=== PATIENT | male | born 1965 | race Caucasian/White ===

== ENCOUNTER → 2016-07-30 | Outpatient (CLI) | payer OTHER ==
[~2016-07-30] VITALS: Ht 170.2 cm; Wt 84.4 kg
[~2016-07-30] MED LIST: AMITRIPTYLINE H25 M2 PO; ASPIR 8181 MG PO; ASPIRIN325 PO; ATORVASTATIN CA40 MG PO; BACLOFEN20 MG PO; CARISOPRODOL 3350 MG PO; COZAAR 50 MG TA50 M2 PO; DULERA 100 MCG/13 GM INH; EFFIENT10 MG PO; FERREX 150150 MG PO; FISH OIL 1,0001 EAC7 PO; FISH OIL 1,001000 M2 PO; GLUCOPHAGE1000 MG PO; HYDROCODONE-AP1 EAC1 PO; IMDUR 60 MG TAB60 M1 PO; INVOKANA100 MG PO; LANTUS100 UNIT/M PO; LISINOPRIL2.5 MG PO; LORTAB PO; LYRICA300 MG PO; METFORMIN PO; METOPROLOL SUCC25 M1 PO; MOBIC15 MG PO; NORCO 10-325 T1 EACH PO; PRILOSEC20 MG PO; PRILOSEC40 MG PO; PROAIR HFA8.5 GM INH; REGLAN10 MG PO; TOPROL XL25 MG PO; TOPROL XL50 MG PO; TRILEPTAL150 MG PO; WELLBUTRIN SR150 MG PO
--- NOTE | ~2016-07-30 | CATHLAB ---
[facility] [place] [address] INVASIVE PROCEDURE REPORT Name: IGNACIA DOW [id number] Admission: 07/30/16 Attend Phys: Ananda Serrano, Discharge: Date of : 61 Date of Service: 07/30/16 0847 Report #: [id number] THIS REPORT FOR: //name// CC: Ananda Mishra DO PROCEDURE: Left heart coronary angiography, WENDY vein graft imaging. INDICATIONS: Chest pain and coronary artery disease. DESCRIPTION OF PROCEDURE: The potential benefits and risks of the procedure were discussed at length with the patient who understood. Full written and informed consent was obtained. The patient was brought into the catheterization suite where his right groin was prepped and draped in a sterile fashion. He was sedated with intravenous Versed. 1% Xylocaine was used as local anesthetic. A 6-St Lucian sheath was placed in the right femoral artery by the modified Seldinger technique. Left heart catheterization was performed with a 6-St Lucian angled pigtail catheter. A single plain ventriculogram was performed in the BLUE view. Pullback gradients were measured across the aortic valve. Selective coronary angiography was performed with a 6-St Lucian JL 4.5 cm coronary and a 6-St Lucian JR 4 cm coronary catheter. The WENDY was selectively engaged with a 6-St Lucian WENDY catheter, the N[place]ka right was used to engage the single vein graft which was actually known to be occluded. All catheters and tubes removed. Hand injection was performed to the right groin sheath with placement of Mynx device upon removal of the sheath. The patient remained in excellent condition at the conclusion of the procedure with good right groin hemostasis and intact distal pulses. RESULTS: LEFT HEART HEMODYNAMICS: 1. Left ventricular systolic pressure of 150. 2. Left ventricular end diastolic pressure of 20. 3. Aortic valve, no gradient was present on pullback across the aortic valve, central aortic pressure 140/60. ANGIOGRAPHY: LEFT VENTRICULOGRAM: Ventriculography demonstrated normal global and regional left ventricular systolic function. Ejection fraction was estimated at 65%. Mitral regurgitation was absent. SELECTIVE CORONARY ANGIOGRAPHY: Left main had been previously stented. The stent was widely patent without evidence of restenosis. Left anterior descending: The left anterior descending exhibited mild proximal plaquing. The mid LAD after a fairly large anterolateral branch was occluded. [facility] [address] [place] [address] INVASIVE PROCEDURE REPORT Name: IGNACIA DOWNE Room #: REG CL Karlos#: [id number] Admission: 07/30/16 Attend Phys: Ananda Serrano, Discharge: Date of : 61 Date of Service: 07/30/16 0847 Report #: [id number] Circumflex: Circumflex was large and comprised of a single mid vessel arising marginal branch. Circumflex exhibited mild plaquing proximally. Right coronary: The right coronary was dominant with a 50% midvessel stenosis. Posterior descending exhibited mild plaquing. Vein graft to the right coronary, the vein graft to the right coronary was known to be flush occluded at the aorta. The mammary: The mammary was normal throughout its course and anastomosed to the mid portion of the LAD. The distal anastomotic site was widely patent with excellent runoff into the LAD. SUMMARY: 1. Normal global and regional left ventricular systolic function, mitral regurgitation was absent, the ejection fraction of 65%. 2. Widely patent left main stent. 3. Severe LAD disease with widely patent left internal mammary to the LAD. 4. Mild circumflex plaquing. 5. The right coronary exhibited the moderate 50% midvessel stenosis. This was a right coronary dominant circulation. Based on this angiographic study, continued pharmacologic therapy and risk factor modification is recommended. <ELECTRONICALLY SIGNED> By: Ananda Serrano MD, [facility] 08/06/16 0946 0847 0957 Ananda Serrano MD, FACC /nt
[2016-07-30 06:42] VITALS: BP 141/76
== END | disposition home or self-care (01) ==
LOC: CATH 06:30
DX: I25.10 Atherosclerotic heart disease of native coronary artery without angina pectoris (principal); I10 Essential (primary) hypertension; E11.9 Type 2 diabetes mellitus without complications; E78.00 Pure hypercholesterolemia, unspecified; J44.9 Chronic obstructive pulmonary disease, unspecified; K21.9 Gastro-esophageal reflux disease without esophagitis; Z95.5 Presence of coronary angioplasty implant and graft; J45.909 Unspecified asthma, uncomplicated; F17.210 Nicotine dependence, cigarettes, uncomplicated

== ENCOUNTER → 2021-01-30 | Outpatient (CLI) | payer OTHER | LOC: SJCVC 13:34 | PROVIDERS: ATTEND Internal Medicine | DX: I25.10 Atherosclerotic heart disease of native coronary artery without angina pectoris (principal); I10 Essential (primary) hypertension; E78.5 Hyperlipidemia, unspecified; E11.9 Type 2 diabetes mellitus without complications; F17.210 Nicotine dependence, cigarettes, uncomplicated; Z79.4 Long term (current) use of insulin; Z95.1 Presence of aortocoronary bypass graft; Z79.82 Long term (current) use of aspirin; Z79.891 Long term (current) use of opiate analgesic; Z88.1 Allergy status to other antibiotic agents ==

== ENCOUNTER 2021-02-28 06:20 | Observation (INO) | payer OTHER ==
[~2021-02-28] VITALS: Ht 170.2 cm; Wt 75.7 kg
[~2021-02-28 06:20] MED LIST changes: -GLUCOPHAGE1000 MG PO; +METFORMIN HCL1000 MG PO
[2021-02-28 07:19] VITALS: BP 147/69
[2021-02-28 07:25] LABS: HEMATOCRIT 40.1 % (42.0-52.0); HEMOGLOBIN 13.3 gm/dL (14.0-18.0); MCH 29.7 pg (26.0-34.0); MCHC 33.1 g/dL (28.0-37.0); MCV 89.9 fL (80.0-100.0); RBC 4.46 mil/uL (4.50-6.00); RDW 17.2 % (10.5-14.5); WBC 11.3 thou/uL (4.0-11.0)
[2021-02-28 07:37] LABS: CALCIUM 8.7 mg/dL (8.5-10.1); CREATININE 1.2 mg/dL (0.7-1.3)
[2021-02-28] MEDS ORDERED: AMITRIPTYLINE H50 M2 PO (07:41)
[2021-02-28] MEDS ORDERED: BUDESONIDE-FO10.2 G1 INH (07:41)
[2021-02-28] MEDS ORDERED: JARDIANCE25 MG PO (07:42)
[2021-02-28] MEDS ORDERED: CARISOPRODOL350 MG PO (07:42)
[2021-02-28] MEDS ORDERED: HYDROCORTISONE30 G4 TOP (07:43)
[2021-02-28] MEDS ORDERED: FAMOTIDINE 40 M40 M1 PO (07:43)
[2021-02-28] MEDS ORDERED: REGLAN 10 MG TA10 MG PO (07:44)
[2021-02-28] MEDS ORDERED: LEVO-T25 MCG PO (07:44)
[2021-02-28] MEDS ORDERED: NITROSTAT0.4 M1 SUBLING (07:45)
[2021-02-28] MEDS ORDERED: EZALLOR SPRINKL20 MG PO (07:46)
[2021-02-28] MEDS ORDERED: ROXICODONE5 MG PO (07:46)
[2021-02-28] MEDS ORDERED: XARELTO2.5 MG PO (07:46)
[2021-02-28] MEDS ORDERED: CARISOPRODOL 3350 M1 PO (11:39)
[2021-02-28] MEDS ORDERED: CLOPIDOGREL75 MG PO (16:23)
--- NOTE | 2021-02-28 18:17 | NUR ---
PT ADMIT TO CCU APPROX 1730 FROM [facility]. PT WAS OFF OF BEDREST WHEN HE GOT TO CCU. UP AD HERNESTO. PT GROIN SITE C/D/I, NO HEMATOMA, NO PAIN/TENDERNESS. PT AFEBRILE, ADEQUATE UOP, NO BM, APPROPRIATE APPETITE. NORMAL SINUS ON TELE. ALL OF PT'S ADMISSION WAS COMPLETED, IN ORDER TO SEE INFORMATION YOU HAVE TO LOOK UNDER PCI. THERE SEEMS TO BE A MISCOMMUNICATION BETWEEN ADMITTING AND OUR OUTSEWER. PT HAS BEEN UPDATED AND EDUCATED ON PT CONDITION AND POC. PT PROGRESSING TOWARDS POC. PLAN TO DC HOME TOMORROW.
[2021-02-28 20:45] VITALS: BP 142/64; BP 153/74
[2021-03-01 04:45] VITALS: BP 187/97
--- NOTE | 2021-03-01 06:32 | NUR ---
PT IN OB STATUS. PT ALSO HAS ADMISSION ON 170. ONLY COMPLAINT WAS SOME BACK PAIN, CALLED AND RECEIVED ORDERS TO RESTART HOME MEDICATION AND ELAVIL. PT RESTED COMFORTABLY ALL NIGHT. CATH SITE C/D/I AND WITHOUT BRUISING. UP AD HERNESTO TO BATHROOM. PT COULD DC TODAY.
[2021-03-01 07:55] VITALS: BP 163/85
[2021-03-01 09:43] LABS: HEMATOCRIT 40.8 % (42.0-52.0); MCH 28.8 pg (26.0-34.0); MCHC 31.9 g/dL (28.0-37.0); MCV 90.4 fL (80.0-100.0); RBC 4.52 mil/uL (4.50-6.00); RDW 16.9 % (10.5-14.5); WBC 10.3 thou/uL (4.0-11.0)
[2021-03-01 10:08] LABS: CALCIUM 8.9 mg/dL (8.5-10.1); POTASSIUM 4.6 mmol/L (3.5-5.1)
[2021-03-01 11:20] VITALS: BP 163/85
--- NOTE | 2021-03-01 11:40 | NUR ---
PT IS AXOX4, PLEASANT; VSS, AFEBRILE, SR ON THE MONITOR. PT POST CATH DAY 1, R GROIN C/D/I, NO HEMATOMA. CARDIOLOGY CONSULTED. PT TO D/C HOME TODAY. CARDIAC REHAB CONDUCTED EDUCATION; POST D/C EDUCATION CONDUCTED BY NURSE. PT COMMUNICATED UNDERSTANDING. PT D/C WITH TO HOME. NO CONCERNS AT THIS TIME.
--- NOTE | 2021-03-01 12:25 | CATHLAB ---
[facility] [place] [address] INVASIVE PROCEDURE REPORT Name: IGNACIA DOW Room #: 213-P [place] [place]#: [id number] Admission: 02/28/21 Attend Phys: Ananda Serrano MD, Discharge: 03/01/21 Date of : 61 Report #: [id number] THIS REPORT FOR: cc: Mg Snyder James R. DO Lundgren, Craig H. MD [facility] ~ APPROVED REPORT Study performed: 02/28/2021 07:28:48 Patient Details Patient Status: Out-Patient Room #: The patient is a 55 year-old male Event Personnel Ananda Serrano Corporate [employer] Research Analyst, Arely Quezada RTR Monitor, Whitney Van RN RN, Nelli Forman RTR Scrub Procedures Performed Art Access - R femoral artery* Left Heart Cath Coronaries, Bypass Grafts [id number] LHCCORCABG Hemostasis w/ Mynx NABOR Place w/wo Plasty Single RCA [id number] 13641 Initial Mod Sed Same Phys/QHP Gr5y 060738 92406 Mod Sed Same Phys/QHP Ea 153408 Procedure Narrative The patient was brought electively to the Cardiac Catheterization Laboratory and was prepped and draped in a sterile manner. The Right Groin^ was infiltrated with 1% Lidocaine subcutaneous anesthesia. A PINNACLE 6FR Sheath #[id number] sheath was inserted into the RFA^. Coronary angiography was performed using coronary diagnostic catheters. The right coronary system was accessed and visualized with a JR4 catheter. The left coronary system was accessed and visualized with a JL4 catheter. The left ventricle was accessed and visualized with a ANGLED PIGTAIL catheter. Left ventriculogram was performed in 30 degree projection. An aortogram of the abdominal aorta was performed. Closure device was deployed with a Fr MYNXGRIP 6/7F #[id number]. The patient tolerated the procedure well and there were no complications associated with the procedure. There was no hematoma. Intraoperative Conscious Sedation Sedation start time: 7:57 Case end Time: 8:57 Fentanyl 100 mcg Versed [address] [address] INVASIVE PROCEDURE REPORT Name: IGNACIA DOW Room #: 213[facility] [id number] Admission: 02/28/21 Attend Phys: Ananda Serrano, Discharge: 03/01/21 Date of : 61 Report #: [id number] Fluoro Time: 9.50 minutes Dose: DAP 64073.60 cGycm2 2678 mGy Contrast Type and Amount: Omnipaque 260 ml Coronary Angiography The patient's coronary anatomy is right dominant. Diagnostic Cath Left Main Mild left main plaquing. Widely patent proximal stent LAD 75 to 80% proximal LAD stenosis just after a large septal perforating branch. Widely patent left internal mammary to the LAD. Excellent runoff into the mid to distal LAD. Diagonal 1 Mild first diagonal branch plaquing Circumflex The circumflex was comprised of a single trifurcating marginal branch. Mild scattered plaquing. Chronically occluded vein graft to the marginal branch Right Coronary Dominant right coronary with scattered 40-50% mid vessel plaquing followed by an 85% distal right coronary stenosis R PDA Minimal plaquing in a large posterior descending branch RPLV Normal posterior lateral branch Left Ventriculography The left ventricle is normal in size with normal contractility. The left ventricular ejection fraction is estimated to be 60-65%. Left ventricular wall motion abnormalities are not present. There is mild mitral insufficiency. Hemodynamics The aortic pressure is 177/61 mmHg with a mean of 114 mmHg. The left ventricular pressure is 169/8 mmHg with a mean of mmHg. The left ventricular end diastolic pressure is 27 mmHg. PCI Technique Lesion Anticoagulation was achieved with Heparin, Integrilin. Patient was preloaded with Plavix. Percutaneous coronary intervention was performed on the distal right coronary artery. The lesion stenosis prior to intervention was 85% with EDEN 3 flow. A LAUNCHER 6FR JR 4 #[id number] Guide Catheter was used to engage the ostium. A Luge Wire .014 x 182CM #[id number] Interventional Guidewire was used to cross the lesion. BALLOON DILATION [facility] [address] [place] [address] INVASIVE PROCEDURE REPORT Name: IGNACIA DOW Room #: 213-P [facility] IN M.R.#: [id number] Admission: 02/28/21 Attend Phys: Ananda Serrano, Discharge: 03/01/21 Date of : 61 Report #: [id number] A Balloon catheter Euphora RX 2.5 x 12 #[id number] was inserted and inflated up to 10.00atm for 33seconds. STENT DEPLOYMENT A drug-eluting stent RESOLUTE YAS RX 3.0 X 15 #[id number] was inserted and inflated up to 18.00atm for 25seconds. POST STENT DEPLOYMENT BALLOON DILATION A Balloon catheter TREK NC RX 3.0 X 12 #[id number] was inserted and inflated up to 22.00atm for 25seconds. Additional Inflation: 22.00atm for 19seconds. Final angiography reveals 0 % stenosis with EDEN 3 flow. Conclusion 1. Normal global and regional left ventricular systolic function. EF 65%. 2. Mild left main plaquing. Widely patent previously placed left main stent. 3. Severe proximal LAD disease with widely patent left internal mammary to the LAD 4. Mild circumflex plaquing. Chronically occluded vein graft to the OM1 4. Severe distal right coronary stenosis stented with a 3.0 x 15 mm Resolute medicated stent postdilated to 3.25 mm Recommendations Smoking Cessation Cardiac Rehabilitation Referral Aggressive Medical Therapy <ELECTRONICALLY SIGNED> By: Ananda Serrano MD, [facility] 03/01/21 1225 24 24 Ananda Serrano MD, FACC /INF
--- NOTE | 2021-03-01 12:36 | EKG ---
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: SBSMITH : 1965 Requested By: Ananda Serrano Order Number: [id number] MD: Juan C Aggarwal Measurements Intervals [place] Rate: 93 P: 58 [place]: 154 QRS: 32 QRSD: 109 T: 32 QT: 378 QTc: 471 Interpretive Statements Sinus rhythm Probable left atrial enlargement Compared to ECG 12/21/2014 08:12:24 No significant changes Electronically Signed On 03-01-2021 12:35:37 CDT by Juan C Aggarwal [email or web address] <ELECTRONICALLY SIGNED> By: Juan C Aggarwal MD, [facility] 03/01/21 1235 0754 0754 Juan C Aggarwal MD, FACC /EPI
== END 2021-03-01 11:41 | disposition home or self-care (01) ==
LOC: CATH 06:20 → 2N 17:48
PROVIDERS: ADMIT Internal Medicine; ATTEND Internal Medicine
DX: I25.10 Atherosclerotic heart disease of native coronary artery without angina pectoris (principal); E78.00 Pure hypercholesterolemia, unspecified; Z79.82 Long term (current) use of aspirin; Z79.899 Other long term (current) drug therapy

== ENCOUNTER 2021-02-28 09:34 | Inpatient (IN) | payer OTHER ==
[~2021-02-28] VITALS: Ht 170.2 cm; Wt 76.2 kg
[~2021-02-28 09:34] MED LIST changes: +AMITRIPTYLINE H50 M2 PO; +BUDESONIDE-FO10.2 G1 INH; +CARISOPRODOL350 MG PO; +EZALLOR SPRINKL20 MG PO; +FAMOTIDINE 40 M40 M1 PO; +HYDROCORTISONE30 G4 TOP; +JARDIANCE25 MG PO; +LEVO-T25 MCG PO; +NITROSTAT0.4 M1 SUBLING; +REGLAN 10 MG TA10 MG PO; +ROXICODONE5 MG PO; +XARELTO2.5 MG PO
[2021-02-28] MEDS ORDERED: CARISOPRODOL 3350 M1 PO (11:39)
[2021-02-28] MEDS ORDERED: CLOPIDOGREL75 MG PO (16:23)
--- NOTE | 2021-03-16 11:47 | D ---
[facility] [place] [address] DISCHARGE SUMMARY Name: IGNACIA DOW Room #: 170-18 [facility] IN M.R.#: [id number] Admission: 02/28/21 Attend Phys: Ananda Serrano MD, Discharge: 03/01/21 Date of : 61 Report #: [id number] THIS REPORT FOR: cc: Mg Snyder James R. DO Lundgren, Craig H. MD [facility] ~ DATE OF SERVICE: 03/01/2021 DISCHARGE DIAGNOSES: 1. Unstable angina. 2. Severe coronary artery disease with prior left internal mammary to the left anterior descending, failed vein graft to the marginal and right coronary artery. 3. Severe distal right coronary disease, successfully stented with a 3.0 x 15 mm Resolute medicated stent. 4. Diabetes. 5. Dyslipidemia. 6. Hypertension. 7. Degenerative back disease; chronic pain. 8. History of coronary artery bypass graft. HISTORY OF PRESENT ILLNESS: For the complete details of the history of present illness, see dictated history and physical. Briefly, the patient is a 55-year-old with a history of severe coronary disease with remote bypass surgery in 2014. He has had prior stenting of the left main feeding an unprotected marginal branch. He now presents with exertional chest pressure, consistent with angina. He is admitted for coronary angiography. Unfortunately, he continues to smoke about a package and a half of cigarettes a day. HOSPITAL COURSE: The patient underwent coronary angiography, the details of which can be found under separate heading and dictation. He was found to have a widely patent left internal mammary to the left anterior descending. Previously, vein grafts were chronically occluded. He had severe distal right coronary disease which was successfully stented with a 3.0 x 15 mm Resolute stent, postdilated to 3.25 mm with a noncompliant balloon. He was treated with heparin, Integrilin, aspirin and Plavix in the periprocedural setting with excellent groin hemostasis at the time of discharge. DISCHARGE MEDICATIONS: Reconciled and include the following: Albuterol inhaler as needed, amitriptyline 100 mg daily, aspirin daily, Symbicort 160/4.5 inhaler 2 puffs twice a day, Soma 350 mg tablet 2 tablets 3 times a day for muscle spasms, Jardiance 25 mg daily, Pepcid 40 mg daily, Plavix 75 mg daily, insulin 20 units daily, levothyroxine 25 mg daily, lisinopril 2.5 mg daily, metformin 1000 mg twice daily, Reglan 10 mg 3 times a day with meals, Toprol-XL 50 mg daily, oxycodone as needed for pain, Lyrica 300 mg twice daily, rivaroxaban 2.5 mg twice daily, rosuvastatin [address] [address] DISCHARGE SUMMARY Name: IGNACIA DOWNE Room #: 170-18 [facility] IN M.R.#: [id number] Admission: 02/28/21 Attend Phys: Ananda Serrano MD, Discharge: 03/01/21 Date of : 61 Report #: [id number] DISCHARGE DIET: Low fat, low cholesterol, prudent diabetic diet. DISCHARGE ACTIVITY: As instructed post-stenting. Arrangements were made for outpatient cardiac rehabilitation at [facility]. DISCHARGE FOLLOWUP: With Dr. Snyder as previously arranged. Followup with myself in 2-3 months. Smoking cessation counseling was performed. DISCHARGE CONDITION: Stable and improved. <ELECTRONICALLY SIGNED> By: Ananda Serrano MD, FACC 03/16/21 1147 1621 1957 Ananda Serrano MD, FACC /nt
== END 2021-03-01 11:41 | disposition home or self-care (01) | DRG 247 ==
LOC: EROBS 09:34
PROVIDERS: ADMIT Internal Medicine; ATTEND Internal Medicine
PROC: B4101ZZ Fluoroscopy of Abdominal Aorta using Low Osmolar Contrast (ICD-10-PCS; principal; 2021-02-28)
PROC: B2151ZZ Fluoroscopy of Left Heart using Low Osmolar Contrast (ICD-10-PCS; principal; 2021-02-28)
PROC: 027034Z Dilation of Coronary Artery, One Artery with Drug-eluting Intraluminal Device, Percutaneous Approach (ICD-10-PCS; principal; 2021-02-28)
PROC: B2111ZZ Fluoroscopy of Multiple Coronary Arteries using Low Osmolar Contrast (ICD-10-PCS; principal; 2021-02-28)
PROC: 4A023N7 Measurement of Cardiac Sampling and Pressure, Left Heart, Percutaneous Approach (ICD-10-PCS; principal; 2021-02-28)
DX: I25.110 Atherosclerotic heart disease of native coronary artery with unstable angina pectoris (principal); E11.9 Type 2 diabetes mellitus without complications; E78.5 Hyperlipidemia, unspecified; I10 Essential (primary) hypertension; G89.29 Other chronic pain; M19.90 Unspecified osteoarthritis, unspecified site; Z95.1 Presence of aortocoronary bypass graft

== ENCOUNTER 2021-03-28 16:59 | Emergency (ER) | payer OTHER ==
[~2021-03-28] VITALS: Ht 170.2 cm; Wt 75.3 kg
[~2021-03-28 16:59] MED LIST changes: +CARISOPRODOL 3350 M1 PO; +CLOPIDOGREL75 MG PO
[2021-03-28] MEDS ORDERED: OLOPATADINE HC2.5 ML EA. EYE (18:13)
[2021-03-28] MEDS ORDERED: SOLIQUA 100 UNIT3 ML SUBQ (18:14)
[2021-03-28] MEDS ORDERED: SYMBICORT160 MCG/4. INH (18:14)
[2021-03-28] MEDS ORDERED: VENTOLIN HFA 1818 GM INH (18:14)
[2021-03-28 18:32] LABS: ABSOLUTE NEUTROPHILS 13.8 thou/uL (1.4-8.2); BASOPHILS 0.2 % (0.0-2.0); EOSINOPHILS 3.9 % (0.0-3.0); HEMATOCRIT 34.4 % (42.0-52.0); HEMOGLOBIN 11.2 gm/dL (14.0-18.0); LYMPHOCYTES 6.2 % (24.0-44.0); MCH 28.7 pg (26.0-34.0); MCHC 32.7 g/dL (28.0-37.0); MCV 87.9 fL (80.0-100.0); PLATELET COUNT 335 thou/uL (150-400); POLYS 81.7 % (36.0-66.0); RBC 3.92 mil/uL (4.50-6.00); RDW 16.8 % (10.5-14.5); WBC 16.9 thou/uL (4.0-11.0)
[2021-03-28 18:39] LABS: CALCIUM 8.5 mg/dL (8.5-10.1); CREATININE 1.2 mg/dL (0.7-1.3); POTASSIUM 3.8 mmol/L (3.5-5.1)
[2021-03-28] MEDS ORDERED: APAP W/CODEINE1 TA2 PO (20:27)
[2021-03-28] MEDS ORDERED: PREDNISONE 20 M20 MG PO (20:27)
[2021-03-28 20:41] VITALS: BP 145/79
--- NOTE | 2021-03-29 08:03 | EKG ---
[place] [address] [address] [facility] [place] [address] ELECTROCARDIOGRAM REPORT Name: VICTOR MIGNACIA CESPEDESNE Room #: [facility] [id number] Admission: 03/28/21 Attend Phys: Discharge: 03/28/21 Date of : 61 Report #: [id number] 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: mpark : 1965 Requested By: Yan Jalloh Order Number: [id number] MD: Ananda Serrano Measurements Intervals [place] Rate: 98 P: 26 [place]: 129 QRS: 12 QRSD: 126 T: 59 QT: 367 QTc: 469 Interpretive Statements Sinus rhythm Nonspecific T wave abnormality Compared to ECG 03/01/2021 07:54:2 T-wave abnormality now present Electronically Signed On 03-29-2021 8:03:40 CDT by Ananda Serrano [email or web address] <ELECTRONICALLY SIGNED> By: Ananda Serrano MD, [facility] 03/29/21 08 180 06 Ananda Serrano MD, FACC /EPI
== END 2021-03-28 20:43 | disposition home or self-care (01) ==
LOC: ER 16:59
PROVIDERS: Nurse Practitioner
DX: M25.512 Pain in left shoulder (principal); M25.511 Pain in right shoulder; J45.909 Unspecified asthma, uncomplicated; I10 Essential (primary) hypertension; E78.00 Pure hypercholesterolemia, unspecified; J44.9 Chronic obstructive pulmonary disease, unspecified; K21.9 Gastro-esophageal reflux disease without esophagitis; E11.9 Type 2 diabetes mellitus without complications; F17.200 Nicotine dependence, unspecified, uncomplicated; Z95.1 Presence of aortocoronary bypass graft; Z98.890 Other specified postprocedural states; Z79.82 Long term (current) use of aspirin; Z79.51 Long term (current) use of inhaled steroids; Z79.891 Long term (current) use of opiate analgesic; Z79.1 Long term (current) use of non-steroidal anti-inflammatories (NSAID); Z79.84 Long term (current) use of oral hypoglycemic drugs; Z79.899 Other long term (current) drug therapy; Z88.1 Allergy status to other antibiotic agents

== ENCOUNTER → 2021-05-29 | Outpatient (CLI) | payer OTHER ==
[~2021-05-29] MED LIST changes: +APAP W/CODEINE1 TA2 PO; +OLOPATADINE HC2.5 ML EA. EYE; +PREDNISONE 20 M20 MG PO; +SOLIQUA 100 UNIT3 ML SUBQ; +SYMBICORT160 MCG/4. INH; +VENTOLIN HFA 1818 GM INH
== END ==
LOC: SJCVC 12:44
PROVIDERS: ATTEND Internal Medicine
DX: I25.10 Atherosclerotic heart disease of native coronary artery without angina pectoris (principal); I10 Essential (primary) hypertension; E78.5 Hyperlipidemia, unspecified; E11.9 Type 2 diabetes mellitus without complications; M35.3 Polymyalgia rheumatica; F17.210 Nicotine dependence, cigarettes, uncomplicated; Z95.1 Presence of aortocoronary bypass graft; Z88.8 Allergy status to other drugs, medicaments and biological substances; Z79.4 Long term (current) use of insulin; Z79.84 Long term (current) use of oral hypoglycemic drugs; Z79.899 Other long term (current) drug therapy